=== PATIENT | female | born 1965 | race Caucasian/White ===

== ENCOUNTER 2023-10-10 07:35 | Outpatient (OUT) | payer OTHER, SELFPAY ==
[2023-10-10 08:02] LABS: Basophils Absolute Auto 0.1 10^3/uL (0.0-0.1); Basophils Percent Auto 0.8 % (0.2-2.0); Eosinophils Absolute Auto 0.2 10^3/uL (0.0-0.7); Eosinophils Percent Auto 2.2 % (0.9-7.0); Hematocrit 32.3 % (36.0-48.0); Hemoglobin 8.8 g/dL (12.0-16.0); Immature Granulocytes Abs Auto 0.02 10^3/uL (0.00-0.03); Immature Granulocytes Pct Auto 0.3 % (0.0-0.5); Lymphocytes Absolute Auto 1.6 10^3/uL (1.2-3.8); Mean Corpuscular HGB Conc 27.2 g/dL (29.9-35.2); Mean Corpuscular Hemoglobin 17.4 pg (26.7-34.0); Mean Corpuscular Volume 63.8 fL (81.0-99.0); Mean Platelet Volume 9.5 fL (9.5-13.5); Monocytes Absolute Auto 0.7 10^3/uL (0.3-0.8); Monocytes Percent Auto 9.2 % (1.7-12.0); Neutrophils Absolute Auto 5.3 10^3/uL (1.4-6.5); Neutrophils Percent Auto 67.5 % (43.0-75.0); Platelet Count 341 10^3/uL (150-450); Red Blood Count 5.06 10^6/uL (4.20-5.40); Red Cell Distribution Width 19.2 % (11.0-15.0); White Blood Count 7.8 10^3/uL (4.0-11.0)
[2023-10-10 09:11] LABS: Alanine Aminotransferase 26 U/L (14-59); Albumin Globulin Ratio 0.9; Albumin Level 3.5 g/dL (3.4-5.0); Alkaline Phosphatase 80 U/L (46-116); Anion Gap 13.7; Aspartate Amino Transferase 12 U/L (15-37); BUN Creatinine Ratio 25.6; Bilirubin Total 0.5 mg/dL (0.2-1.0); Calcium 8.5 mg/dL (8.5-10.1); Carbon Dioxide 27.2 mmol/L (21.0-32.0); Chloride 104 mmol/L (98-107); Chol HDL Ratio 3.9; Cholesterol 259 mg/dL (<=200); Estimated GFR (African America >60 (>=60); Estimated GFR (Non-African Ame >60 (>=60); Free T3 2.19 pg/mL (2.18-3.98); Globulin 4.1 g/dL; Glucose 122 mg/dL (74-106); HDL Cholesterol 67 mg/dL (40-60); Potassium 3.9 mmol/L (3.5-5.1); Sodium 141 mmol/L (136-145); Thyroid Stimulating Hormone 2.881 uIU/mL (0.358-3.740); Total Protein 7.6 g/dL (6.4-8.2); Triglycerides 98 mg/dL (<=150); VLDL CHOLESTEROL 19.6 mg/dL
[2023-10-10 11:53] LABS: Estimated Average Glucose 146 mg/dL; Glycohemoglobin A1C 6.7 % (4.5-6.2)
== END 2023-10-10 07:36 | disposition home or self-care (01) ==
LOC: LAB 07:39
PROVIDERS: PCP Family Medicine; Visit Provider Family Medicine
DX: Z00.00 Encounter for general adult medical examination without abnormal findings (principal); E78.5 Hyperlipidemia, unspecified; R73.09 Other abnormal glucose; Z12.12 Encounter for screening for malignant neoplasm of rectum; D64.9 Anemia, unspecified
CPT/HCPCS: 36415; 80053; 80061; 83036; 83540; 84436; 84443; 84481; 85025

== ENCOUNTER 2025-01-03 11:58 | Outpatient (OUT) | payer OTHER, SELFPAY ==
--- OUTSIDE RECORDS SUMMARY | 2024-12-06 07:15 | XMS_ITS ---
Author Organization [facility] in [place] Address [address] [place] [address] Care Team Providers Care Auger Machine Offbearer Name Role Phone Osmani Dunlap Primary Care Provider [phone] REASON FOR VISIT bp Vital Signs Height 67 in 12/06/2024 Blood pressure systolic 182 mm Hg 12/07/19 25 Blood pressure diastolic 100 mm Hg 025 Encounters Encounter Location Date Provider Diagnosis [facility] [address] [place] [address] 12/06/2024 Osmani Dunlap Hypertension I10 Assessments Encounter Date Diagnosis (ICD Code) Assessment Notes Treatment Notes Treatment Clinical Notes Section Notes 12/06/2024 Hypertension (ICD-10 - I10) Plan Of Treatment No Information Progress Notes * Dana PATTEN MDOB:[birth year] (59 yo F)Acc No.[id number]:12/06/2024 BP Check Patient: Nieves Dana BABIN Provider: Gus Dunlap ([facility] [place] :1965 A ge:59 Y S ex:Female Date:12/06/2024 Address:[address] [place] [address] [id number] Check In:11:24 AM EST Subjective: * Chief Complaints: * 1 . Bp. * Active Problem List E78.00 Elevated cholesterol Modified On:09/11/2023W/U Status:confirmed G47.00 Acute insomnia Modified On:09/11/2023W/U Status:confirmed I10 Hypertension Modified On:09/11/2023W/U Status:confirmed J30.2 Other seasonal aller gic rhinitis Modified On:09/11/2023/U Status:confirmed H00.19 Chalazion Modified On:11/29/2024U Status:confirmed * Medical History: Objective: * Vitals: H t: 67 in, BP:182/100mm Hg, Ht-cm: 170.18 cm. Assessment: * Assessment: 1. H ypertension - I10 (Primary) Plan: * Treatment: * * Sign off status: Completed Visit Status: A RR (Check-In) true * Provider: Gus Dunlap ([facility])MD Date: 0 12/06/2024 Generated for Collin pitts/[place]/Raulitting on: 01/03/2025 12:01 PM EDT
--- OUTSIDE RECORDS SUMMARY | 2024-12-06 07:31 | XMS_ITS ---
Author Organization [facility] in [place] Address [address] [place] [address] Care Team Providers Care Cage Clerk Name Role Phone Osmani Dunlap Primary Care Provider [phone] REASON FOR VISIT BP Check Medications Medication SIG (Take, Route, Fr equency, Duration) Notes Start Date End Date Status Carvedilol 12.5 MG TAKE 1 TABLET BY FRANK TH EVERY DAY Twice a day for 30 days Active Encounters Encounter Location Date Provider Diagnosis [facility] [address] [place] [address] 12/06/2024 Osmani Dunlap Well adult Z00.0 0 Assessments Encounter Date Diagnosis (ICD Code) Assessment Notes Treatment Notes Treatment Clinical Notes Section Notes 12/06/2024 Well adult (ICD-10 - Z00.00) Plan Of Treatment Medication Medication Name Sig Start Date Stop Date Notes Carvedilol 12.5 MG TAKE 1 TABLET BY FRANK TH EVERY DAY Twice a day for 30 days Progress Notes * Dana PATTEN MDOB:[birth year] (59 yo F)Acc No.[id number]:12/06/2024 Patient: Nieves BABINDana :1965 A ge:59 Y S ex:Female Address:[facility] [place] [address] * Refills Refill Carvedilol Tablet, 12.5 MG, 60, TAKE 1 TABLET BY MOUTH EVERY DAY, Twice a day, 30 days, Refills=11 * true * Date: Generated for Printi ng/Faxing/eTransmitting on: 0 01/03/2025 12:00 PM EDT
--- OUTSIDE RECORDS SUMMARY | 2025-01-02 05:30 | XMS_ITS ---
Author Organization [facility] in [place] Address [address] [place] [address] Care Team Providers Care Night Coordinator Name Role Phone Osmani Dunlap Primary Care Provider Allergies Allergen (clinical drug ingredient) Drug/Non Drug Allergy documented on EMR Reaction Allergy Type Onset Date Status Substance with sulfonamide structure and antibacterial mechanism of action (substance) Sulfa Antibiotics Hives Drug Allergy Active Penicillin Hives Drug Allergy Active REASON FOR VISIT Fibromyalgia, pain in left hip, has not taken BP meds for 2 days- just has to get to pharmacy to p/u Medications Medication SIG (Take, Route, Frequency, Duration) Notes Start Date End Date Status Lancet Device - as directed 09/11/2023 A ctive Irbesartan 75 MG 1 tablet Orally Once a day for 30 days 11/29/2024 Active Pantoprazole Sodium 40 MG 1 tablet Orall y Once a day for 30 days 10/10/2023 Active OneTouch Ultra - as directed In Vitro 09/11/2023 Active Lnsdrqrb-Cfpemwqtf-Astnbygb 3.5-37607-0.1 1 drop into affected eye Ophthalmic Four times a day for 7 days 11/29/2024 Active Diclofenac Sodium 75 MG TAKE 1 TABLET BY MOUTH TWICE A DAY NEEDED for 30 Active Carvedilol 12.5 MG TAKE 1 TABLET BY FRANK TH EVERY DAY Twice a day for 30 days Active Azelastine HCl 0.05 % 1 drop into affect ed eye Ophthalmic qd 11/29/2024 Active hydrOXYzine HCl 25 MG 1 Orally QID 03/13/2023 Active Ferrous Sulfate 325 (65 Fe) MG TAKE 1 TABLET BY MOUTH TWICE A DAY FOR 30 DAYS for 90 Active Desvenlafaxine Succinate ER 50 MG 1 tablet Orally Once a day for 30 day(s) 01/02/2025 Active Social History Tobacco Use: Social History Observation Description Date Details (start date - stop date) Former Smoker 08/30/1983 - NA Tobacco Control (Standard) Question Answer Notes Tobacco use: Former smoker When did you start smoking? 08/30/1983 Problems Problem Type SNOMED Code ICD Code Onset Dates Problem Status W/U Status Risk Notes Problem Anxiety (04920540) Anxiety (F41.9) Active confirmed Problem Depression (179087986) Depression (F32.9) Active confirmed Vital Signs Weight 189.8 lbs 01/02/2025 Height 67 in 01/02/2025 Blood pressure systolic 198 mm Hg 01/03/20 25 Blood pressure diastolic 94 mm Hg 025 BMI 29.72 kg/m2 01/02/2025 Encounters Encounter Location Date Provider Diagnosis [facility] [address] [place] [address] 01/02/2025 Osmani Hosonal Hypertension I10 ; Anxiety F41.9 ; Depression F32.9 and Left hip pain M25.552 Assessments Encounter Date Diagnosis (ICD Code) Assessment Notes Treatment Notes Treatment Clinical Notes Section Notes 01/02/2025 Hypertension (ICD-10 - I10) 01/02/2025 Anxiety (ICD-10 - F41.9) 01/02/2025 Depression (ICD-10 - F32.9) 01/02/2025 Left hip pain (ICD-10 - M25.552) Plan Of Treatment Medication Medication Name Sig Start Date Stop Date Notes Desvenlafaxine Succinate ER 50 MG 1 tabl et Orally Once a day for 30 day(s) 01/02/2025 Medications Administered Medication Instructions Date of Administration Dosage Notes Triamcinolone 40 mg/ml 01/02/2025 120 mg Ketorolac Tromethamine 01/02/2025 60 mg Orphenadrine Citrate 01/02/2025 60 mg Progress Notes * Dana PATTEN MDOB:[birth year] (59 yo F)Acc No.[id number]:01/02/2025 UNLOCKED PROGRESS NOTE Progress Note Patient: Dana KINNEY Provider: Gus Dunlap ([facility])MD :1965 A ge:59 Y S ex:Female Date:01/02/2025 Address:[id number] Check In:09:26 AM ESTCheck O ut:09:59 AM EST Subjective: * Chief Complaints: * 1 . Fibromyalgia. 2. Pain in left hip. 3. has not taken BP meds for 2 days- just has to get to pharmacy to p/u. * HPI: G eneral: Just more activitiws around the house - some inc in stress. * ROS: E ENT: hearing changes d enies. v isual changes d enies.?non-healing mouth sores d enies. s wollen glands or neck lumps d enies. h oarseness d enies. s ore throat d enies. d ifficulty swallowing d enies. n ose bleeds d enies. n jennifer congestion d enies. e ar ache d enies. e ar discharge?denies. r inging in ears d enies. l ight sensitivity d enies. e ye pain d enies. b lurring d enies. e ye irritation d enies. d ouble vision d enies.?vision loss d enies. G eneral/Constitutional: Sweats: D enies. F atigue d enies. S leep problems d enies. A norexia d enies. M alaise d enies. W eight loss d enies.?Fatigue or Weakness d enies. F ever or Chills d enies. C ardiovascular: Shortness of Breath w/lying flat d enies. L ightheadedness/dizziness d enies. C hest tightness/ heavy pressure d enies. S welling of legs, ankles, or feet d enies. W aking up with shortness of breath d enies. C hest pain denies. P alpitations d enies. W eight gain d enies. R espiratory: Chronic or frequent cough d enies. C oughing up blood?denies. D ifficulty breathing d enies. P roductive cough d enies. S noring?denies. S hortness of breath that awakens from sleep (PND) d enies. C hest pain d enies. S putum production d enies. W heezing d enies. M usculoskeletal: Joint pain d enies. J oint Fluid d enies. B ack pain d enies. K nee pain d enies. N west pain d enies. J oint Stiffness d enies. M uscle cramps d enies. W eakness of muscles d enies. A rthritis d enies. M uscle aches d enies. P ain in shoulder(s) d enies. S wollen joints d enies. * Medical History: B ilateral plantar fasciitis, Pre-diabetes, Elevated cholesterol, 2019 novel coronavirus disease (COVID-19), Acute insomnia, Hypertension. * Surgical History: C ESAREAN DELIVERY x3 , Cyst removed from right shoulder . * Family History: F ather: unknown. M other: unknown. * Social History: T obacco Use: T obacco Control (Standard) T obacco use: F ormer smoker W hen did you start smoking? 0 08/30/1983 * Medications: T aking Azelastine HCl 0.05 % Solution 1 drop into affected eye Ophthalmic qd , Taking Carvedilol 12.5 MG Tablet TAKE 1 TABLET BY MOUTH EVERY DAY Twice a day , Taking Diclofenac Sodium 75 MG Tablet Delayed Release TAKE 1 TABLET BY MOUTH TWICE A DAY NEEDED , Taking Ferrous Sulfate 325 (65 Fe) MG Tablet TAKE 1 TABLET BY MOUTH TWICE A DAY FOR 30 DAYS , Taking hydrOXYzine HCl 25 MG Tablet 1 Orally QID , Taking Irbesartan 75 MG Tablet 1 tablet Orally Once a day , Taking Lancet Device - Miscellaneous as directed , Taking Yxsqjukm-Ntgduchhk-Myrjgrjs 3.5-52416-4.1 Suspension 1 drop into affected eye Ophthalmic Four times a day , Taking OneTouch Ultra(Glucose Blood) - Strip as directed In Vitro , Taking Pantoprazole Sodium 40 MG Tablet Delayed Release 1 tablet Orally Once a day , Medication List reviewed and reconciled with the patient * Allergies: P enicillin: Hives - Allergy, Sulfa Antibiotics: Hives - Allergy. Objective: * Vitals: W t:189.8lbs, Ht: 67 in, BP:198/94mm Hg, BMI:29.72Index, Ht-cm: 170.18 cm, Wt-k.09 kg. * Examination: P hysical Exam: GENERAL: w ell developed, well nourished, in no acute distress. HEAD: n ormocephalic/atraumatic. EYES: p upils equal, round and reactive to light, conjunctivae and sclerae normal. EARS: n o deformity or lesion of external ear, canals and TM appear normal bilaterally, TM's intact, not inflamed with normal light reflex, hearing grossly normal to conversational speech. NOSE: n o deformity, discharge, inflammation, or lesions.? MOUTH: m ucous membranes moist, normal oropharynx and posterior pharynx without lesions or exudates, tongue normal, dentition normal. NECK: n west supple, no masses or palpable cervical nodes, trachea midline, thyroid without nodules, masses, tenderness, or enlargement. CHEST: n o chest wall deformity, no chest wall tenderness.? LUNGS: n ormal respiratory effort and clear to auscultation, no wheezes, rales, or rhonchi, good air exchange. CARDIO: r egular rate and rhythm, normal S1 and S2, nor murmur, rub, or gallop. PULSES: n ormal capillary refill. ABDOMEN: s oft, non-distended, non-tender, no masses. MUSCULOSKELETAL: n o deformity or scoliosis noted, normal range of motion, joints normal, no erythema, edema, effusion, or ecchymosis. EXTREMITY: n o clubbing, cyanosis, edema, or deformity with normal ROM in both upper and lower bilateral extremities. NEUROLOGIC: g rossly normal. SKIN: n o rashes, ulcerations, or suspicious lesions. LYMPH NODES: n o cervical adenopathy, nodes normal. MENTAL STATUS: a lert and oriented x3, normal mood and affect. Assessment: * Assessment: 1. H ypertension - I10 (Primary) 2 . A nxiety - F41.9 3 .?Depression - F32.9 4 . L eft hip pain - M25.552 Plan: * Treatment: * Therapeutic Injections: Triamcinolone 40 mg/ml : 120 mg (Route: Intramuscular) given by KAMINI Pereyra on right gluteus (Hypertension, Anxiety, Depression) Ketorolac Tromethamine : 60 mg (Route: Intramuscular) given by KAMINI Pereyra on right gluteus (Hypertension, Anxiety, Depression) Orphenadrine Citrate : 60 mg (Route: Intramuscular) given by KAMINI Pereyra on left gluteus (Hypertension, Anxiety, Depression) * Procedure Codes: 9 6372 THERAP.INJ. OF MED. INTRAMUSCULAR OR SUBCUTANEOUS, J3301 TMC ACET,PER 10MG., Units: 12.00 , J1885 TORADOL, PER 15 MG, Units: 4.00 , Modifiers: JZ , J2360 NORFLEX,UP TO 60MG. * Preventive Medicine: Screenings/Counseling: B SD ACTION PLAN Above Normal BMI Follow-up D ietary management education, guidance, and counseling * * Electronic signature of Osmani Dunlap MD, [id number] on 01/03/2025 at 12:01 PM EDT Sign off status: Pending Visit Status: C HK (Check Out) * Provider: Gus Dunlap ([facility])MD Date: 01/02/2025 Generated for Printi ng/Faxing/eTransmitting on: 01/03/2025 12:01 PM EDT History and Physical Notes * HPI (History of Present Illness) Category Sub-Category Detail Notes Category Not es General Just more activ itiws around the house - some inc in stress Examination Category Sub-Category Detail Notes Category Not es Physical Exam GENERAL: well developed, well nourished, in no acute distress HEAD: normocephalic/atraum atic EYES: pupils equal, round and reactive to light, conjunctivae and sclerae normal EARS: no deformity or lesi on of external ear, canals and TM appear normal bilaterally, TM's intact, not inflamed with normal light reflex, hearing grossly normal to conversational speech NOSE: no deformity, discha rge, inflammation, or lesions MOUTH: mucous membranes magdy st, normal oropharynx and posterior pharynx without lesions or exudates, tongue normal, dentition normal NECK: neck supple, no mass es or palpable cervical nodes, trachea midline, thyroid without nodules, masses, tenderness, or enlargement CHEST: no chest wall deform ity, no chest wall tenderness LUNGS: normal respiratory e ffort and clear to auscultation, no wheezes, rales, or rhonchi, good air exchange CARDIO: regular rate and rhy thm, normal S1 and S2, nor murmur, rub, or gallop PULSES: normal capillary ref ill ABDOMEN: soft, non-distended, non-tender, no masses RECTAL: MUSCULOSKELETAL: no deformity or scol iosis noted, normal range of motion, joints normal, no erythema, edema, effusion, or ecchymosis EXTREMITY: no clubbing, cyanosi s, edema, or deformity with normal ROM in both upper and lower bilateral extremities NEUROLOGIC: grossly normal SKIN: no rashes, ulceratio ns, or suspicious lesions LYMPH NODES: no cervical adenopat hy, nodes normal MENTAL STATUS: alert and oriented x 3, normal mood and affect
--- OUTSIDE RECORDS SUMMARY | 2025-01-03 04:27 | XMS_ITS ---
Author Organization [facility] in [place] Address [address] [place] [address] Care Team Providers Care Underwater Hunter Name Role Phone Osmani Dunlap Primary Care Provider REASON FOR VISIT update and sick Medications Medication SIG (Take, Route, Fr equency, Duration) Notes Start Date End Date Status Azithromycin 250 MG 2 tabs today then 1 tab Orally daily for 5 days 01/03/2025 Active predniSONE 10 MG 5 tabs per day for 3 days, 4 tabs per day for 3 ays, 3 tabs perday for 3 days, 2 tabs per day for 3 days, 1 tab a day for 3 days, 1/2 tab a day for 4 days Orally Once a day for 19 days 01/03/2025 Ac tive Encounters Encounter Location Date Provider Diagnosis [facility] [address] [place] [address] 01/03/2025 Osmani Dunlap Hip pain, acute, lef t M25.552 Assessments Encounter Date Diagnosis (ICD Code) Assessment Notes Treatment Notes Treatment Clinical Notes Section Notes 01/03/2025 Hip pain, acute, left (ICD-10 - M25.552) Plan Of Treatment Medication Medication Name Sig Start Date Stop Date Notes Azithromycin 250 MG 2 tabs today then 1 tab Orally daily for 5 days 01/03/2025 predniSONE 10 MG 5 tabs per day for 3 days, 4 tabs per day for 3 ays, 3 tabs perday for 3 days, 2 tabs per day for 3 days, 1 tab a day for 3 days, 1/2 tab a day for 4 days Orally Once a day for 19 days 01/03/2025 Pending Test Test Name Order Date XR HIP 2 OR 3 VW LEFT 01/03/2025 Progress Notes * Dana PATTEN MDOB:[birth year] (59 yo F)Acc No.[id number]:01/03/2025 Patient: Dana KINNEY :1965 A ge:59 Y S ex:Female Address:[address] [place] [address] * Refills Start predniSONE Tablet, 10 MG, Orally, 47, 5 tabs per day for 3 days, 4 tabs per day for 3 ays, 3 tabs perday for 3 days, 2 tabs per day for 3 days, 1 tab a day for 3 days, 1/2 tab a day for 4 days, Once a day, 19 days, Refills=0 Start Azithromycin Tablet, 250 MG, Orally, 6, 2 tabs today then 1 tab, daily, 5 days, Refills=0 Subjective: * Chief Complaints: * U pdate and sick * Medical History: * Surgical History: * Hospitalization/Major Diagno stic Procedure: * Medications: Objective: * Vitals: * Physical Examination: Assessment: * Assessment: 1. H ip pain, acute, left - M25.552 (Primary) Plan: * Treatment: 2. O thers Start predniSONE Tablet, 10 MG, 5 tabs per day for 3 days, 4 tabs per day for 3 ays, 3 tabs perday for 3 days, 2 tabs per day for 3 days, 1 tab a day for 3 days, 1/2 tab a day for 4 days, Orally, Once a day, 19 days, 47, Refills 0; S tart Azithromycin Tablet, 250 MG, 2 tabs today then 1 tab, Orally, daily, 5 days, 6, Refills 0. * Procedure Codes: * true * Date: Generated for Collin pitts/[place]/Raulitting on: 0 01/03/2025 12:01 PM EDT
--- OUTSIDE RECORDS SUMMARY | 2025-01-03 12:01 | XMS_ITS | Patient Health Record ---
Author Organization [facility] in [place] Address [address] [place] [address] Care Team Providers Care Saddle And Side Wire Stitcher Name Role Phone GermánOsmani Primary Care Provider Allergies Allergen (clinical drug ingredient) Drug/Non Drug Allergy documented on EMR Reaction Allergy Type Onset Date Status Substance with sulfonamide structure and antibacterial mechanism of action (substance) Sulfa Antibiotics Hives Drug Allergy Active Penicillin Hives Drug Allergy Active Reason For Referral No Information Medications Medication SIG (Take, Route, Frequency, Duration) Notes Start Date End Date Status Diclofenac Sodium 75 MG TAKE 1 TABLET BY MOUTH TWICE A DAY NEEDED for 30 Active Carvedilol 12.5 MG TAKE 1 TABLET BY FRANK TH EVERY DAY Twice a day for 30 days Active Azelastine HCl 0.05 % 1 drop into affect ed eye Ophthalmic qd 11/29/2024 Active Lancet Device - as directed 09/11/2023 A ctive Irbesartan 75 MG 1 tablet Orally Once a day for 30 days 11/29/2024 Active Desvenlafaxine Succinate ER 50 MG 1 tablet Orally Once a day for 30 day(s) 01/02/2025 Active hydrOXYzine HCl 25 MG 1 Orally QID 03/13/2023 Active Ferrous Sulfate 325 (65 Fe) MG TAKE 1 TABLET BY MOUTH TWICE A DAY FOR 30 DAYS for 90 Active predniSONE 10 MG 5 tabs per day for 3 days, 4 tabs per day for 3 ays, 3 tabs perday for 3 days, 2 tabs per day for 3 days, 1 tab a day for 3 days, 1/2 tab a day for 4 days Orally Once a day for 19 days 01/03/2025 Active Azithromycin 250 MG 2 tabs today then 1 tab Orally daily for 5 days 01/03/2025 Active Pantoprazole Sodium 40 MG 1 tablet Orall y Once a day for 30 days 10/10/2023 Active OneTouch Ultra - as directed In Vitro 09/11/2023 Active Ixzryocb-Qyaadkkjs-Biykqazt 3.5-71915-1.1 1 drop into affected eye Ophthalmic Four times a day for 7 days 11/29/2024 Active Social History Tobacco Use: Social History Observation Description Date Details (start date - stop date) Former Smoker 08/30/1983 - NA Tobacco Control (Standard) Question Answer Notes Tobacco use: Former smoker When did you start smoking? 08/30/1983 AUDIT-C (Standard) Question Answer Notes Did you have a drink containing alcohol in the p ast year? No Points 0 Interpretation Negative Problems Problem Type SNOMED Code ICD Code Onset Dates Problem Status W/U Status Risk Notes Problem 489975247 Other seasonal allergic rhinitis (J30.2) Active confirmed Problem Hypertension (21444022) Hyperten brian (I10) Active confirmed Problem Anxiety (50963357) Anxiety (F41.9) Active confirmed Problem Depression (074376324) Depressio n (F32.9) Active confirmed Problem Chalazion (7040570) Chalazion (H00.19) Active confirmed Problem Pure hypercholesterolemia (076528413) Elevated cholesterol (E78.00) Active confirmed Problem Acute insomnia (361009677) Acute insomnia (G47.00) Active confirmed Vital Signs Temperature 98.3 degrees Fahrenheit 08/02/2024 Blood pressure diastolic 94 mm Hg 01/02/2025 Height 67 in 01/02/2025 Blood pressure systolic 198 mm Hg 01/02/2025 Weight 189.8 lbs 01/02/2025 BMI 29.72 kg/m2 01/02/2025 Encounters Encounter Location Date Provider Diagnosis [facility] [address] [place] [address] 12/02/2024 Osmani Dunlap [facility] [address] [place] [address] 12/06/2024 sOmani Dunlap Well adult Z00.00 [facility] [address] [place] [address] 01/03/2025 Osmani Hoy Hip pain, acute, lef t M25.552 [facility] [address] [place] [address] 01/02/2025 Osmani Hoy Hypertension I10 ; Anxiety F41.9 ; Depression F32.9 and Left hip pain M25.552 [facility] [address] [place] [address] 11/29/2024 Osmani Hoy Chalazion H00.19 and Hypertension I10 [facility] [address] [place] [address] 12/06/2024 Osmani Hoy Hypertension I10 [facility] [address] [place] [address] 09/12/2024 Osmani Hoy Other seasonal aller gic rhinitis J30.2 [address] [place] [address] 08/02/2024 Osmani Hoy Acute non-recurrent sinusitis, unspecified location J01.90 and Nasal congestion R09.81 Assessments Encounter Date Diagnosis (ICD Code) Assessment Notes Treatment Notes Treatment Clinical Notes Section Notes 09/12/2024 Other seasonal allergic rhinitis (ICD-10 - J30.2) 11/29/2024 Chalazion (ICD-10 - H00.19) 11/29/2024 Hypertension (ICD-10 - I10) 12/06/2024 Hypertension (ICD-10 - I10) 01/02/2025 Hypertension (ICD-10 - I10) 01/02/2025 Anxiety (ICD-10 - F41.9) 08/02/2024 Acute non-recurrent sinusitis, unspecified location (ICD-10 - J01.90) Rest and drink more liquids, especially water. You may use a humidifier or vaporizer to help keep the drainage moist. Kypx-clo-nfqmbin Nasal Saline may help the stuffy and runny nose. Use Ibuprofen and or Tylenol as needed for fever, chills, body aches or pain. Children 5 years old should not be given jssj-nup-aidiwsc cough and cold medications such as guaifenesin and dextromethorphan. If you're over age 5, you may try mmbg-gkq-yrccfvz cold medications such as guaifenesin and dextromethorphan, or multi-symptom cold reliever such as Dayquil to help reduce the symptoms. Antibiotics have been prescribed. You should take these until completed and follow the directions. Antibiotics can sometimes cause upset stomach, and in rare cases, serious allergic reactions or serious gastrointestinal problems. If you start having severe abdominal pain, severe vomiting, or bloody diarrhea, you should be reevaluated by your physician or urgent care immediately. Follow up with your Primary Care Provider or return to clinic if symptoms do not improve within 3-5 days 12/06/2024 Well adult (ICD-10 - Z00.00) 01/03/2025 Hip pain, acute, left (ICD-10 - M25.552) 08/02/2024 Nasal congestion (ICD-10 - R09.81) 01/02/2025 Depression (ICD-10 - F32.9) 01/02/2025 Left hip pain (ICD-10 - M25.552) Plan Of Treatment Pending Test Test Name Order Date CMP (COMPLETE METABOLIC PANEL) 4 HEMOGLOBIN A1C (GLYCO) 09/11/2023 IRON, TOTAL 09/11/2023 LIPID PANEL (CHOL/TRIG/HDL/LDL) 09/11/19 24 CBC WITH DIFF 09/11/2023 MAMM Mammograms CAD 09/11/2023 STOOL OCCULT BLOOD 09/11/2023 LIPID PROFILE 10/10/2023 THYROID PANEL (T4/TSH/FREE T3) 4 XR HIP 2 OR 3 VW LEFT 01/03/2025 Insurance Providers Payer Name Payer Address Payer Phone Subscriber Number Group Number Insured Name Patient Relationship to Insured Coverage Start Date Coverage End Date [employer] [address] [phone] [id number] Flako Powell Spouse - patient is the spouse of the insured Medications Administered Medication Instructions Date of Administration Dosage Notes Kenalog-40 09/11/2023 80 mg 80 Kenalog-40 12/18/2023 80 mg Ketorolac Tromethamine 01/02/2025 60 mg Orphenadrine Citrate 01/02/2025 60 mg Triamcinolone 40 mg/ml 09/12/2024 80 mg Triamcinolone 40 mg/ml 01/02/2025 120 mg Medical (General) History Medical History History ICD Code Bilateral plantar fasciitis M72.2 Pre-diabetes R73.03 Elevated cholesterol E78.00 2018 novel coronavirus disease (COVID-19 ) U07.1 Acute insomnia G47.00 Hypertension I10 Surgical History Surgery Date(Month/Year) Cyst removed from right shoulder DELIVERY x3
--- OUTSIDE RECORDS SUMMARY | 2025-01-03 12:05 | XMS_ITS | CCD ---
Author Organization [facility] Care Team Providers Care Pelt Grader Name Role Phone KALIN Nichols, DR TIMMONS Admitting Unavailable DR IAIN NEGRO Attending Unavailable DR IAIN NEGRO Primary Care Unavailable KALIN Nichols, DR TIMMONS Consulting Unavailable Allergies Allergy Classification Reported Allergen(s) Allergy Type Date of Onset Reaction(s) Facility (1 source) Penicillins Drug allergy (disorder) 11-19-2013 [facility] Repository (1 source) Sulfonamides (Antibiotic) Drug allergy (disorder) 11-19-2013 [facility] Problems Active Problems Problem Classification Problem Date Documented Da te Episodic/Chronic Other upper respiratory disease (1 source) Nasal congestion; Translations: [NASAL CONGESTION] Onset: 04-29-2022 Episodic Unclassified (3 sources) CONTACT W/AND (SUSP) EXPOS COVID-19; Translations: [CONTACT W/AND (SUSP) EXPOS COVID-19] Onset: 04-29-2022 Unclassified (1 source) COUGH, UNSPECIFIED; Translations: [COUGH, UNSPECIFIED] Onset: 04-29-2022 Past or Other Problems Problem Classification Problem Date Documented Da te Episodic/Chronic Unclassified (1 source) CONTACT W/AND (SUSP) EXPOS COVID-19; Translations: [CONTACT W/AND (SUSP) EXPOS COVID-19] Onset: 04-26-2022 Results Test Name Value Interpretation Reference Range Facil ity Covid-19 PCR (CVDTBH)on 04-01 SARS-CoV-2 (COVID-19) RNA RIA+probe Ql (Unsp spec) Not detected Normal NOT DETECTED [facility] Comment on above: Result Comment: This test is not yet approved or cleared by the [place] FDA. When there are no FDA-approved or cleared tests available, and other criteria are met, FDA can make tests available under an emergency access mechanism called an Emergency Use Authorization (EUA). The EUA for this test is supported by the [employer] of Health and Human Service's (HHS's) declaration that circumstances exist to justify the emergency use of in vitro diagnostics for the detection and/or diagnosis of the virus that causes COVID-19. This EUA will remain in effect (meaning this test can be used) for the duration of the COVID-19 declaration justifying emergency of IVDs, unless it is terminated or revoked by FDA (after which the test may no longer be used). When diagnostic testing is negative, the possibility of a false negative should be considered in the context of a patient's recent exposures and the presence of clinical signs and symptoms consistent with SARS-CoV-2. Performed By: #### C VDTB #### [facility] [address] [place] [address] Dr. Barron Flores INFLUENZA A AND B [facility] 04-26 [facility] SEE BELOW Normal [facility] Comment on above: Result Comment: Nega tive for Flu A protein angiten. Infection due to Flu A cannot be ruled out. Flu A angiten in the sample may be below the detection limit of the test. Performed By: #### I NFLUAB #### [facility] [address] [place] [address] Dr. Barron Flores [facility] SEE BELOW Normal [facility] Comment on above: Result Comment: Nega tive for Flu B protein antigen. Infection due to Flu B cannot be ruled out. Flu B antigen in the sample may be below the detection limit of the test. Performed By: #### I NFLUAB #### [facility] [address] [place] [address] Dr. Barron Flores INFLUENZA A AG Negative Normal NEGATIVE SEE COMMENT [facility] Comment on above: Performed By: #### I NFLUAB #### [facility] [address] [place] [address] Dr. Barron Flores INFLUENZA B AG Negative Normal NEGATIVE SEE COMMENT [facility] Comment on above: Performed By: #### I NFLUAB #### [facility] [address] [place] [address] Dr. Barron Flores INTERNAL CONTROLS Within Normal Limits Normal Wi thin Normal Limits [facility] Comment on above: Performed By: #### I NFLUAB #### [facility] [address] [place], [place] [address] Dr. Barron Flores Encounters Encounter Date Encounter Type Care Provider Facility Start: 04-26-2022 End: 04-26-[address] IAIN GAGNON . Facility: Payers Date Payer Category Payer Unknown [id number] 1958 Unknown [id number] Summary Purpose Family History No Family History Records Found Advance Directives No Advanced Directives Records Found Additional Source Comments INFORMATION SOURCE (unrecogn ized section and content) DATE CREATED AUTHOR 07/06/2022 [facility] FOR RECORDS PERTAINING TO PATIENTS WHO ARE OR HAVE BEEN ENROLLED IN A CHEMICAL DEPENDENCY/SUBSTANCEABUSE PROGRAM, SOME INFORMATION MAY BE OMITTED. This clinical summary was aggregated from multiple sources. Caution should be exercised in using it in the provision of clinical care. This summary normalizes information from multiple sources, and as a consequence, information in this document may materially change the coding, format and clinical context of patient data. In addition, data may be omitted in some cases. CLINICAL DECISIONS SHOULD BE BASED ON THE PRIMARY CLINICAL RECORDS. [employer] provides no warranty or guarantee of the accuracy or completeness of information in this document.
--- NOTE | 2025-01-03 12:16 | XR_ITS ---
The [address] [address] Patient Name: REE PATTEN MRN: [id number] date: 1965 Sex: F Assigned Patient Location: [facility] Current Patient Location: [facility] Accession/Order Number: [id number] Exam Date: 01/03/2025 12:10 Report Date: 01/03/2025 12:46 At the request of: IAIN GAGNON MD Procedure: XR hip LT min 2V LEFT HIP - 2 views: CLINICAL HISTORY: Acute Left Hip Pain. The past 2 weeks with radiation down the leg. No injury. COMPARISON: None AP and frog-lateral views were obtained. There is no acute fracture or dislocation. There is slight medial narrowing of the hip joint space. There is minor hypertrophy as well as subchondral sclerosis and cystic change at the superior acetabulum. Mild sclerosis is noted at the left SI joint. Levoscoliotic curvature and mild degenerative change are present at the lower imaged lumbar spine. Pelvic calcifications may be related to uterine fibroids. There are no other soft tissue abnormalities. XR/XR hip LT min 2V IMPRESSION: MILD DEGENERATIVE CHANGES. NO ACUTE BONY FINDINGS. Impression dictated by: Key Ricardo M.D. 01/03/2025 12:46 PM Dictation Location: [place] [address] Electronically authenticated by: [id number] Date: 01/03/2025 12:46
== END 2025-01-03 11:59 | disposition home or self-care (01) ==
LOC: RAD 11:59
PROVIDERS: PCP Family Medicine; Visit Provider Family Medicine
DX: M25.552 Pain in left hip (principal)
CPT/HCPCS: 73502

== ENCOUNTER 2025-01-13 09:54 | Outpatient (RCR) | payer OTHER, SELFPAY | END 2025-03-07 13:12 | disposition home or self-care (01) | LOC: PT 09:54 | PROVIDERS: PCP Family Medicine; Visit Provider Family Medicine | DX: M25.552 Pain in left hip (principal); M25.551 Pain in right hip | CPT/HCPCS: 20560; 20561; 97014; 97035; 97110; 97140; 97161 ==